=== PATIENT | male | born 1995 | race Two or more races ===

== ENCOUNTER 2018-09-22 17:31 | Emergency (ER) | payer SELFPAY ==
[~2018-09-22] VITALS: Ht 180.3 cm; Wt 67.6 kg
[2018-09-22 17:51] VITALS: BP 99/64
== END 2018-09-22 18:24 | disposition home or self-care (01) ==
LOC: ER 17:31
DX: H01.004 Unspecified blepharitis left upper eyelid (principal); H00.014 Hordeolum externum left upper eyelid; Z88.6 Allergy status to analgesic agent